=== PATIENT | female | born 1965 | race Caucasian/White ===

== ENCOUNTER 2021-06-22 00:22 | Inpatient (IN) | payer MEDICARE, OTHER ==
[~2021-06-22] VITALS: Ht 167.6 cm; Wt 104.3 kg
[2021-06-22] MEDS ORDERED: HYDR-3972 PO (01:07)
[2021-06-22] MEDS ORDERED: IBUP-1957 PO (01:27)
[2021-06-22] MEDS ORDERED: LEVE1000 PO (01:28)
[2021-06-22] MEDS ORDERED: MAGNESIUM HYDROXIDE 30 ML UDC PO PRN (01:30)
[2021-06-22] MEDS ORDERED: ACETAMINOPHEN 325 MG TABLET PO PRN (01:30)
[2021-06-22] MEDS ORDERED: TEMAZEPAM 15 MG CAPSULE PO PRN (01:30)
[2021-06-22] MEDS ORDERED: BLOOD SUGAR DIAGNOSTIC 1 EACH STRIP IN ONE (01:30)
[2021-06-22] MEDS ORDERED: QUET200T5 PO (01:33)
--- NOTE | 2021-06-22 02:23 | NUR ---
GPS RN NOTE, PATIENT NEEDS A MEDICATION RECONCILIATION. PAGED [facility] AND INFORMED NAEL PEARSON DNP OF MY FINDINGS. NAEL PEARSON DNP SAID SHE WILL DO THE MED RECON WHEN SHE HAS A MOMENT. ALL ORDERS NOTED AND CARRIED OUT. WILL CONTINUE TO MONITOR THIS PATIENT WITH THE HELP OF STAFF.
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
[2021-06-22 03:09] VITALS: BP 150/113
[2021-06-22] MEDS: clonazePAM 0.5 MG TABLET PO PRN ×2 (03:11→22:22)
--- NOTE | 2021-06-22 03:13 | NUR ---
GPS RN NOTES: Patient is restless, anxious, clonazepam 0.5mg given PO at 0311. Will continue to monitor.
[2021-06-22 03:52] VITALS: BP 150/113
[2021-06-22] MEDS ORDERED: IBUPROFEN 800 MG TABLET PO PRN (05:30)
--- NOTE | 2021-06-22 06:48 | NUR ---
GPS RN NOTES: CALLED PATIENT SISTER MIKA MARRERO [phone] AND INFORMED HER OF PATIENT ADMISSION AT 0652. WILL ENDORSE TO AM SHIFT.
[2021-06-22 08:00] VITALS: BP 144/79
--- NOTE | 2021-06-22 10:30 | NUR ---
GIVEN NORCO FOR MIGRAINE HEADACHE.
[2021-06-22] MEDS: LEVETIRACETAM (250 MG) 250 MG TABLET PO SCH ×2 (10:34→21:06)
[2021-06-22] MEDS: HYDROCODONE/APAP 5/325MG TABLET PO PRN ×2 (10:35→17:49)
[2021-06-22 16:00] VITALS: BP 126/97
[2021-06-22] MEDS: QUETIAPINE FUMARATE 25 MG TABLET PO SCH (17:49)
--- NOTE | 2021-06-22 17:50 | NUR ---
GIVEN NORCO FOR HEADACHE.
--- NOTE | 2021-06-22 18:54 | NUR ---
VERY NEEDY,OUT AT DESK [facility], [facility].
[2021-06-22 20:00] VITALS: BP 128/74
--- NOTE | 2021-06-22 22:25 | NUR ---
RN NOTES: ANXIETY PT.C/O VERY ANXIOUS ,NONREDIRECTABLE YELLING SCREAMING PRN KLONOPIN 0.5 MG PO GIVEN WILL CONTINUE TO MONITOR.
[2021-06-23] MEDS: HYDROCODONE/APAP 5/325MG TABLET PO PRN ×3 (02:03→15:03)
--- NOTE | 2021-06-23 02:06 | NUR ---
RN NOTES : PT. C/O BACK PAIN 11/06 , NARCO 1 TAB GIVEN , PER PT. REQUEST WILL CONTINUE TO MONITOR.
[2021-06-23 06:35] LABS: BASOPHILS # (AUTO) 0.1 K/uL (0.0-0.2); BASOPHILS % (AUTO) 0.5 % (0.0-2.0); EOSINOPHILS % (AUTO) 0.1 % (0.0-6.0); HEMATOCRIT 44 % (33-45); HEMOGLOBIN 14.8 g/dL (11.5-14.8); LYMPHOCYTES # (AUTO) 2.9 K/uL (0.8-4.8); MEAN CORPUSCULAR HGB CONC 33 g/dl (31.0-36.0); MEAN CORPUSCULAR VOLUME 85 fL (82-100); MONOCYTES # (AUTO) 0.9 K/uL (0.1-1.30); MONOCYTES % (AUTO) 8.1 % (2.0-12.0); NEUTROPHILS # (AUTO) 6.8 K/uL (1.8-8.9); NEUTROPHILS % (AUTO) 64.3 % (43.0-81.0); PLATELET COUNT (AUTO) 374 K/uL (150-450); RED BLOOD CELL COUNT(AUTO) 5.21 MIL/uL (4.0-5.2); WHITE BLOOD COUNT (AUTO) 10.6 K/uL (4.3-11.0)
[2021-06-23 07:07] LABS: CALCIUM, SERUM 9.1 mg/dL (8.5-10.1); CREATININE 0.6 mg/dL (0.6-1.3); POTASSIUM 3.9 mmol/L (3.5-5.1)
[2021-06-23 08:00] VITALS: BP 140/89
[2021-06-23] MEDS: QUETIAPINE FUMARATE 25 MG TABLET PO SCH ×2 (08:39→16:35)
[2021-06-23] MEDS: LEVETIRACETAM (250 MG) 250 MG TABLET PO SCH ×2 (08:39→20:05)
[2021-06-23 16:00] VITALS: BP 151/80
[2021-06-23] MEDS: clonazePAM 0.5 MG TABLET PO PRN (16:41)
[2021-06-23 19:56] VITALS: BP 140/80
[2021-06-24] MEDS: HYDROCODONE/APAP 5/325MG TABLET PO PRN ×3 (01:31→17:32)
--- NOTE | 2021-06-24 02:00 | NUR ---
GPS RN NOTES PATIENT AWAKE, REQUESTING NORCO, DUE TO GENERALIZED BODY PAINS; 11/06 PAIN, NORCO ADMINISTERED PER MD ORDER; PATIENT ABLE TO MAKE NEEDS KNOWN, ALSO REQUESTING SOME SNACKS; PATIENT IN BED RESTING, WILL CONT TO MONITOR SAFETY
[2021-06-24] MEDS: clonazePAM 0.5 MG TABLET PO PRN ×3 (02:34→20:13)
[2021-06-24 08:00] VITALS: BP 122/60
[2021-06-24] MEDS: LEVETIRACETAM (250 MG) 250 MG TABLET PO SCH ×2 (08:43→21:02)
[2021-06-24] MEDS: QUETIAPINE FUMARATE 25 MG TABLET PO SCH (08:43)
[2021-06-24] MEDS ORDERED: QUETIAPINE FUMARATE 25 MG TABLET PO SCH (09:00)
--- NOTE | 2021-06-24 10:02 | NUR ---
NORCO 5-325 GIVEN FOR GENERALIZED PAIN. WILL REASSESS AND CONTINUE TO MONITOR.
--- NOTE | 2021-06-24 11:42 | NUR ---
KLONOPIN 0.5MG GIVEN FOR ANXIETY. WILL CONTINUE TO MONITOR.
[2021-06-24] MEDS: MAG HYDROX/AL HYDROX/SIMETH 30 ML UDC PO PRN (15:33)
--- NOTE | 2021-06-24 15:33 | NUR ---
MAALOX GIVEN FOR INDIGESTION. WILL CONTINUE TO MONITOR
--- NOTE | 2021-06-24 15:36 | NUR ---
Initial Discharge Plan: The pt. was admitted to [facility] from [facility] [[address] [facility] [address]The pt. is currently experiencing homelessness. Pt. states she would like to be discharged to [facility] in [facility] [[address] [place] [address] . Pt. is not able to make a safe discharge plan at this time. The pt.'s sister, Meg Tinoco [phone] stated she would prefer that the pt. be discharged to a SNF. SS will continue to collaborate with psychiatrists to plan a safe & proper discharge plan.
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
[2021-06-24 16:00] VITALS: BP 148/79
--- NOTE | 2021-06-24 17:33 | NUR ---
NORCO 5-325 GIVEN FOR GENERALIZED PAIN. WILL REASSESS AND CONTINUE TO MONITOR.
--- NOTE | 2021-06-24 20:16 | NUR ---
RN NOTES: ANXIETY PT.C/O VERY ANXIOUS ,NONREDIRECTABLE,NEEDY,RESTLESS,PACING IN HALLWAY PRN KLONOPIN 0.5 MG PO GIVEN WILL CONTINUE TO MONITOR.
[2021-06-24 20:43] VITALS: BP 146/65
[2021-06-24 21:00] VITALS: BP 130/82
[2021-06-24] MEDS: QUETIAPINE FUMARATE 100 MG TABLET PO SCH (21:36)
[2021-06-25] MEDS: HYDROCODONE/APAP 5/325MG TABLET PO PRN ×3 (03:26→17:05)
[2021-06-25 08:00] VITALS: BP 109/63
[2021-06-25] MEDS: LEVETIRACETAM (250 MG) 250 MG TABLET PO SCH ×2 (09:06→21:35)
[2021-06-25] MEDS: QUETIAPINE FUMARATE 25 MG TABLET PO SCH (09:06)
--- NOTE | 2021-06-25 09:44 | NUR ---
NORCO 5-325 GIVEN FOR GENERALIZED PAIN. WILL REASSESS AND CONTINUE TO MONITOR.
--- NOTE | 2021-06-25 12:10 | NUR ---
SANTOS Family Contact: SANTOS received a call from patient's mother Debby ([phone]) to give information to this story writer. Debby reported that she would want pt to go to a SNF. SANTOS stated that this story writer will give pt options.
--- NOTE | 2021-06-25 12:58 | NUR ---
SNF Referral: SW spoke with Pamela diaz from [facility] ([phone]) who stated they cannot accept pt due to pt not having skill need.
--- NOTE | 2021-06-25 12:58 | NUR ---
SNF Referral: SANTOS sent clinicals to Pamela diaz from [facility] ([phone]) for placement option. SW sent H & P, progress notes, and medication list.
--- NOTE | 2021-06-25 13:00 | NUR ---
SNF Referral: SANTOS sent clinicals to Margaret diaz from [facility] ([phone]) for placement option. SW sent H & P, progress notes, and medication list.
[2021-06-25] MEDS: clonazePAM 0.5 MG TABLET PO PRN ×2 (14:26→21:37)
--- NOTE | 2021-06-25 14:26 | NUR ---
KLONOPIN 0.5MG GIVEN FOR ANXIETY. WILL CONTINUE TO MONITOR.
--- NOTE | 2021-06-25 14:40 | NUR ---
SW Note: Patient has been verbally abusive and has been yelling at this radio news writer and stating that she has issues with her family.
--- NOTE | 2021-06-25 14:47 | NUR ---
SW Note: Patient is labile and hyperverbal. Patient yelling "god is here".
--- NOTE | 2021-06-25 15:55 | NUR ---
SW Note: SW had received a call from patient's mother Debby ([phone]) who shared information with this news writer in regards to patients discharge and information about pt. Pt spoke with mother later on today around 2PM and became agitated about it and yelled at this news writer to not speak to pt's mother. Pt wishes for staff not to speak to family.
[2021-06-25 16:00] VITALS: BP 141/62
--- NOTE | 2021-06-25 16:15 | NUR ---
DNP WESLEY WAS CONTACTED PT BECAME EXTREMELY IRRITATED AND AGITATED AFTER A PHONE CALL. UNABLE TO REDIRECT PATIENT. YELLING AND INTRUSIVE. PER DNP WESLEY IF PT CONTINUED WITH BEHAVIOR, ATIVAN 2MG IM TO BE GIVEN. WILL MONITOR BEHAVIOR.
--- NOTE | 2021-06-25 16:45 | NUR ---
PT IS MORE CALM AND COOPERATIVE. PT REDIRECTABLE. PT IN ROOM. NO NEED FOR ATIVAN 2MG IM NEEDED AT THIS TIME.
--- NOTE | 2021-06-25 17:06 | NUR ---
NORCO 5-325 GIVEN FOR GENERALIZED PAIN. WILL REASSESS AND CONTINUE TO MONITOR.
[2021-06-25] MEDS: QUETIAPINE FUMARATE 100 MG TABLET PO SCH (21:35)
--- NOTE | 2021-06-25 21:41 | NUR ---
GPS RN NOTES: PATIENT IS RESTLESS, PACING, AGITATED. KLONOPIN 0.5MG GIVEN PO ORDERED. WILL CONTINUE TO MONITOR.
[2021-06-26] MEDS: HYDROCODONE/APAP 5/325MG TABLET PO PRN ×4 (01:06→21:38)
--- NOTE | 2021-06-26 01:09 | NUR ---
GPS RN NOTES: Patient c/o generalized body pain. patient is restless, irritable and rates pain level 8/10. [place] 5/325mg/1tab given PO at 0106. Will continue to monitor.
[2021-06-26 08:00] VITALS: BP 146/88
[2021-06-26] MEDS: LEVETIRACETAM (250 MG) 250 MG TABLET PO SCH ×2 (08:19→21:39)
[2021-06-26] MEDS: QUETIAPINE FUMARATE 25 MG TABLET PO SCH (08:19)
[2021-06-26] MEDS: clonazePAM 0.5 MG TABLET PO PRN ×3 (08:31→21:39)
--- NOTE | 2021-06-26 08:32 | NUR ---
RN-CO: KLONOPIN 0.5 MG PO GIVEN FOR RESTLESSNESS AND ANXIETY.
--- NOTE | 2021-06-26 08:32 | NUR ---
RN-CO: PEYTON 1 TAB GIVEN FOR C/O GEN PAIN 11/06.
--- NOTE | 2021-06-26 08:44 | NUR ---
Court Hearing Notification: Pt's court hearing for 5250 is today, however, pt does not want the staff to notify family.
--- NOTE | 2021-06-26 10:58 | NUR ---
Court Hearing: Patient's court hearing for 7620 was today and it was upheld for GD.
--- NOTE | 2021-06-26 11:21 | NUR ---
SNF Contact: SW spoke with Margaret diaz from [facility] ([phone]) who stated that pt is accepted.
--- NOTE | 2021-06-26 14:07 | NUR ---
RN-CO: KLONOPIN 0.5 MG PO GIVEN FOR C/O RESTLESSNESS.
--- NOTE | 2021-06-26 15:04 | NUR ---
rn-co: norco given for c/o gen body pain 11/06.
[2021-06-26 16:00] VITALS: BP 144/82
[2021-06-26 20:19] VITALS: BP 136/59
[2021-06-26] MEDS: QUETIAPINE FUMARATE 100 MG TABLET PO SCH (21:38)
--- NOTE | 2021-06-26 21:38 | NUR ---
RN NOTES norco as ordered by hospitalist given for c/o gen body pain 11/06.
--- NOTE | 2021-06-26 21:40 | NUR ---
RN NOTES KLONOPIN 0.5 MG PO ORDERED BY HOSPITALIST GIVEN FOR C/O RESTLESSNESS.
[2021-06-27] MEDS: clonazePAM 0.5 MG TABLET PO PRN ×2 (05:20→19:36)
[2021-06-27] MEDS: HYDROCODONE/APAP 5/325MG TABLET PO PRN ×3 (05:21→21:07)
--- NOTE | 2021-06-27 05:21 | NUR ---
RN NOTES KLONOPIN 0.5 MG PO ORDERED BY HOSPITALIST GIVEN FOR C/O RESTLESSNESS.
--- NOTE | 2021-06-27 05:22 | NUR ---
RN NOTES norco as ordered by hospitalist given for c/o gen body pain 11/06.
[2021-06-27] MEDS: LEVETIRACETAM (250 MG) 250 MG TABLET PO SCH ×2 (08:33→21:09)
[2021-06-27] MEDS: QUETIAPINE FUMARATE 25 MG TABLET PO SCH (08:33)
[2021-06-27 16:00] VITALS: BP 143/89
--- NOTE | 2021-06-27 16:16 | NUR ---
SANTOS Note: SANTOS notified pt that her mother SANTOS Guardado ([phone]) contacted this account underwriter and wanted to speak about her treatment/discharge plan. Patient did not allow this account underwriter to contact her mother Debby.
--- NOTE | 2021-06-27 16:16 | NUR ---
SANTOS Family Contact: SW received a call from patient's mother Debby ([phone]) and left a voicemail to discuss pt's discharge and treatment plan.
[2021-06-27 20:00] VITALS: BP 161/95
[2021-06-27] MEDS: QUETIAPINE FUMARATE 100 MG TABLET PO SCH (21:08)
--- NOTE | 2021-06-28 03:33 | NUR ---
RN Notes: Medicine compliant. Many small demands, "Get me a Blianket", Get me Fresh water . "Get me Avant". She stated that [employer]or[employer] makes her have seizuers. Medicated at 2129 with NORCO for generalized pAIN and effective. She is demanding and verbally loud. She ambulates with a walker
[2021-06-28] MEDS: HYDROCODONE/APAP 5/325MG TABLET PO PRN ×3 (05:26→19:39)
--- NOTE | 2021-06-28 06:00 | NUR ---
RN NOTES: medicated this AM with 1 tablet of NORCO she has requested to take a shower. Shown to the shower room bed linen changed
[2021-06-28] MEDS: clonazePAM 0.5 MG TABLET PO PRN ×3 (08:36→21:05)
[2021-06-28] MEDS: QUETIAPINE FUMARATE 25 MG TABLET PO SCH ×2 (08:36→16:23)
[2021-06-28] MEDS: LEVETIRACETAM (250 MG) 250 MG TABLET PO SCH ×2 (08:36→21:05)
--- NOTE | 2021-06-28 13:21 | NUR ---
SW Family Contact: SW received a call from patient's mother Debby ([phone]) and this SW expressed that pt does not want this show card writer to contact or share any information regarding her treatment. Mother was understanding of this.
--- NOTE | 2021-06-28 15:15 | NUR ---
RN NOTE- ANXIETY/ RESTLESSNESS. KLONOPIN 0.5 MG ADMINISTERED
[2021-06-28 16:00] VITALS: BP 140/67
[2021-06-28] MEDS: FUROSEMIDE 20 MG TABLET PO SCH (16:23)
--- NOTE | 2021-06-28 19:30 | NUR ---
GPS RN OPENING NOTE RECEIVED PATIENT AWAKE IN BED. A/OX3. PT STABLE ON ROOM AIR. NO SOB OR S/S OF RESPRITATORY DISTRESS. PT IS MED COMPLIANT, ATTENTION SEEKING, NOT REDIRECTABLE, DELUSIONAL, AND POOR INSIGHT. PATIENT DENIES SI/HI AT THIS TIME. SAFETY PRECAUTIONS IN PLACE. BED IN LOWEST LOCKED POSITION, SIDE RAILS UP X2, AND CALL LIGHT IN REACH. WILL CONTINUE WITH PLAN OF CARE.
--- NOTE | 2021-06-28 19:39 | NUR ---
RN NOTE PT COMPLAINING OF BLE PAIN 11/06. ADMINISTERED NORCO 5-325 MG ORDERED FOR MODERATE TO SEVERE PAIN. WILL CONTINUE WITH PLAN OF CARE.
[2021-06-28 20:00] VITALS: BP 107/67
[2021-06-28] MEDS: QUETIAPINE FUMARATE 100 MG TABLET PO SCH (21:05)
--- NOTE | 2021-06-28 21:05 | NUR ---
RN NOTE PT ANXIOUS, YELLING, AND PACING THE HALLWAY. ADMINISTERED KLONOPIN 0.5 MG ORDERED FOR ANXIETY. WILL CONTINUE WITH PLAN OF CARE.
[2021-06-29] MEDS: MAG HYDROX/AL HYDROX/SIMETH 30 ML UDC PO PRN ×3 (01:06→18:38)
--- NOTE | 2021-06-29 01:07 | NUR ---
RN NOTE PT COMPLAINED OF INDIGESTION. ADMINISTERED MAALOX ORDERED. WILL CONTINUE WITH PLAN OF CARE.
[2021-06-29] MEDS: HYDROCODONE/APAP 5/325MG TABLET PO PRN ×4 (02:12→22:19)
--- NOTE | 2021-06-29 02:12 | NUR ---
RN NOTE PT COMPLAINING OF BLE PAIN 10/06. ADMINISTERED NORCO 5-325 MG ORDERED FOR MODERATE TO SEVERE PAIN. WILL CONTINUE WITH PLAN OF CARE.
[2021-06-29] MEDS: clonazePAM 0.5 MG TABLET PO PRN ×2 (06:38→16:35)
--- NOTE | 2021-06-29 06:38 | NUR ---
RN NOTE PT ANXIOUS, YELLING, AND PACING THE HALLWAY. ADMINISTERED KLONOPIN 0.5 MG ORDERED FOR ANXIETY. WILL CONTINUE WITH PLAN OF CARE.
[2021-06-29 08:00] VITALS: BP 133/69
[2021-06-29] MEDS: LEVETIRACETAM (250 MG) 250 MG TABLET PO SCH ×2 (09:19→22:19)
[2021-06-29] MEDS: QUETIAPINE FUMARATE 25 MG TABLET PO SCH ×2 (09:20→17:27)
--- NOTE | 2021-06-29 09:20 | NUR ---
GIVEN NORCO 5-325 FOR GENERALIZED PAIN,PACING IN HALLWAY.
--- NOTE | 2021-06-29 15:10 | NUR ---
given fiorella at this time,very needy and continually asking for things. Addendum: 06/29/[address]AIDI RN after bringing in antacid,pt refused,said she would rather eat.
--- NOTE | 2021-06-29 15:37 | NUR ---
given norco for generalized pain.
[2021-06-29 16:00] VITALS: BP 154/84
--- NOTE | 2021-06-29 16:36 | NUR ---
GIVEN KLONOPIN FOR NERVES.
--- NOTE | 2021-06-29 18:42 | NUR ---
GIVEN MYLANTA FOR INDIGESTION.
--- NOTE | 2021-06-29 19:30 | NUR ---
RN OPENING NOTE PATIENT AWAKE AND WALKING THE RINCON NEAREST HER ROOM. A/OX3. NO S/S OF DISTRESS; BREATHING UNLABORED ON RM AIR. PATIENT'S MOOD APPEARS ANXIOUS. SAFETY MEASURES IN PLACE: HER BED IS AT LOWEST POSITION & LOCKED, CALL LIGHT ACCESSIBLE IF NEEDED. WILL CONTINUE TO MONITOR PATIENT.
[2021-06-29 20:00] VITALS: BP 154/86
[2021-06-29] MEDS: QUETIAPINE FUMARATE 100 MG TABLET PO SCH (22:19)
[2021-06-30] MEDS: MAG HYDROX/AL HYDROX/SIMETH 30 ML UDC PO PRN ×2 (04:27→12:45)
[2021-06-30] MEDS: FUROSEMIDE 20 MG TABLET PO SCH (05:09)
[2021-06-30] MEDS: HYDROCODONE/APAP 5/325MG TABLET PO PRN ×3 (05:09→19:44)
[2021-06-30 08:00] VITALS: BP 133/64
[2021-06-30] MEDS: LEVETIRACETAM (250 MG) 250 MG TABLET PO SCH ×2 (08:11→20:58)
[2021-06-30] MEDS: QUETIAPINE FUMARATE 25 MG TABLET PO SCH ×2 (08:11→17:05)
[2021-06-30] MEDS: clonazePAM 0.5 MG TABLET PO PRN ×3 (08:28→21:48)
[2021-06-30] MEDS ORDERED: OLANZAPINE 10 MG VIAL IM ONE (13:30)
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
--- NOTE | 2021-06-30 13:55 | NUR ---
RN-CO: PATIENT CONTINUE TO YELL AND SCREAMED IN THE HALLWAY WITH PROFANITIES. VERY LOUD AND DISRUPTIVE IN THE UNIT. REMAINS NON REDIRECTABLE. WE WILL CONTINUE TO MONITOR.
--- NOTE | 2021-06-30 20:06 | NUR ---
GPS RN NOTES PATIENT COMPLIANT WITH MEDICATION REGIME BUT CONSTANTLY REFUSING SKIN ASSESSMENTS, PATIENT REFUSED SKIN ASSESSMENT UPON ADMISSION; PATIENT WAS RE-EDUCATED ON IMPORTANCE OF COMPLIANCE THROUGHOUT HOSPITALIZATION, PATIENT VERBALIZED, "I JUST WANT MY PAIN MEDICATIONS AND TO REST, PLEASE CLOSE THE DOOR ON YOUR WAY OUT." UNFORTUNATELY PATIENT REFUSED SKIN ASSESSMENT AGAIN, CHARGE NURSE MADE AWARE;
[2021-06-30] MEDS: QUETIAPINE FUMARATE 100 MG TABLET PO SCH (21:02)
[2021-06-30 21:11] VITALS: BP 124/64
[2021-07-01] MEDS: HYDROCODONE/APAP 5/325MG TABLET PO PRN ×4 (02:56→21:08)
--- NOTE | 2021-07-01 07:30 | NUR ---
PT RECEIVED RESTING COMFORTABLY IN BED. NO S/S OR C/O PAIN OR DISTRESS NOTED. SIDE RAILS UP X2. WILL CONTINUE PLAN OF CARE
[2021-07-01 08:00] VITALS: BP 153/82
[2021-07-01] MEDS: LEVETIRACETAM (250 MG) 250 MG TABLET PO SCH ×2 (08:39→21:06)
[2021-07-01] MEDS: QUETIAPINE FUMARATE 25 MG TABLET PO SCH ×2 (08:42→18:10)
[2021-07-01] MEDS: clonazePAM 0.5 MG TABLET PO PRN ×4 (10:14→22:16)
[2021-07-01] MEDS: MAG HYDROX/AL HYDROX/SIMETH 30 ML UDC PO PRN (14:14)
[2021-07-01 16:00] VITALS: BP 147/88
[2021-07-01 19:55] VITALS: BP 155/68
[2021-07-01] MEDS: QUETIAPINE FUMARATE 100 MG TABLET PO SCH (21:05)
[2021-07-02] MEDS: clonazePAM 0.5 MG TABLET PO PRN ×4 (02:04→19:50)
[2021-07-02] MEDS: HYDROCODONE/APAP 5/325MG TABLET PO PRN ×4 (03:34→22:55)
[2021-07-02] MEDS: FUROSEMIDE 20 MG TABLET PO SCH (06:26)
[2021-07-02 08:00] VITALS: BP 137/73
[2021-07-02] MEDS: QUETIAPINE FUMARATE 25 MG TABLET PO SCH ×2 (10:20→16:47)
[2021-07-02] MEDS: LEVETIRACETAM (250 MG) 250 MG TABLET PO SCH ×2 (10:20→21:08)
--- NOTE | 2021-07-02 10:27 | NUR ---
given norco for generalized pain.
--- NOTE | 2021-07-02 11:46 | NUR ---
in tv rm. yelling,ready to eat and wants to be alone.given klonoagustin.
--- NOTE | 2021-07-02 13:05 | NUR ---
YELLING IN DINING RM. AT THIS TIME,REFUSING TO EAT IN HER RM.WANTS LUNCH TABLE BY HERSELFCRITICIZING CHOICE OF TV SHOW.
--- NOTE | 2021-07-02 15:43 | NUR ---
GIVEN KLONOPIN FOR AGITATION.
[2021-07-02 16:00] VITALS: BP 141/87
--- NOTE | 2021-07-02 16:52 | NUR ---
MEDICATED ADDITIONALLY FOR GENERALIZED PAIN WITH NORCO.
--- NOTE | 2021-07-02 19:41 | NUR ---
RN OPENING NOTE PATIENT WALKING AROUND THE HALLWAY AND BACK TO HER ROOM, YELLING AND SCREAMING REGARDING GETTING AN ICE PACK. PATIENT IS HOSTILE, AGITATED, AND DELUSIONAL. PATIENT IS A/O X 3 AT THIS TIME. WILL PROVIDE ANTI ANXIETY MEDS ACCORDINGLY. PATIENT NOT IN ANY RESPIRATORY DISTRESS. SAFETY MEASURES IMPLEMENTED. BED LOCKED AND IN LOWEST POSITION, SIDE RAILS UP, BED ALARM ON. WILL MONITOR PATIENT CLOSELY.
[2021-07-02 19:48] VITALS: BP 136/82
--- NOTE | 2021-07-02 19:54 | NUR ---
PATIENT AGITATED, ARGUMENTATIVE, AND DELUSIONAL. KLONOPIN GIVEN.
[2021-07-02] MEDS: QUETIAPINE FUMARATE 100 MG TABLET PO SCH (21:08)
--- NOTE | 2021-07-02 22:55 | NUR ---
NORCO 5-325 GIVEN FOR LEG PAIN. WILL REASSESS AT A LATER TIME.
[2021-07-03] MEDS: HYDROCODONE/APAP 5/325MG TABLET PO PRN ×3 (04:55→19:49)
--- NOTE | 2021-07-03 05:03 | NUR ---
NORCO 5-325 GIVEN FOR LEG PAIN. WILL REASSESS AT A LATER TIME. ICE PACK GIVEN.
[2021-07-03] MEDS: clonazePAM 0.5 MG TABLET PO PRN ×3 (05:56→18:08)
--- NOTE | 2021-07-03 06:00 | NUR ---
KLONOPIN GIVEN D/T INCREASED ANXIETY AND AGITATION
[2021-07-03 08:00] VITALS: BP 151/77
[2021-07-03] MEDS: QUETIAPINE FUMARATE 25 MG TABLET PO SCH ×2 (08:46→17:00)
[2021-07-03] MEDS: LEVETIRACETAM (250 MG) 250 MG TABLET PO SCH ×2 (08:46→21:39)
--- NOTE | 2021-07-03 14:57 | NUR ---
Individual Counseling: SANTOS met with pt. bedside and completed individual group regarding positive coping mechanisms. The p. is alert & oriented, piercing eye contact, irritable, loud speech with tangential thought process. SW educated pt. on positive coping mechanisms and pt. was receptive. pt. stated, she has learned in the past that doing breathing exercises help her relax as will as writing letters to loved ones as a ways of communicating positively. SANTOS validated what she has used in the past.
[2021-07-03 16:00] VITALS: BP 150/75
--- NOTE | 2021-07-03 19:35 | NUR ---
GPS RN NOTES RECEIVED WALKING BY THE HALLWAYS,PUSHING HER BEDSIDE TABLE WITH HER DINNER FOOD TRAY ON IT,ATE FOOD BY THE HALLWAY,NO CHOKING NOTED.A/O X3,ABLE TO VERBALIZED NEEDS,REDIREACTABLE.AMBULATE WITH STEADY GAIT.TALKATIVE AT TIMES.WILL CONTINUE TO MONITOR BEHAVIOR.
--- NOTE | 2021-07-03 19:49 | NUR ---
GPS RN NOTES C/O CHRONIC GENERALIZED PAIN, NORCO 5/325MG,1TAB PO GIVEN ORDERED FOR MODERATE PAIN AND PER PATIENT REQUEST.
[2021-07-03] MEDS: QUETIAPINE FUMARATE 100 MG TABLET PO SCH (21:40)
[2021-07-04] MEDS: clonazePAM 0.5 MG TABLET PO PRN ×6 (01:22→20:33)
--- NOTE | 2021-07-04 01:22 | NUR ---
GPS RN NOTES AWAKE THIS TIME,FEELING ANXIOUS,KLONOPIN 0.5MG PO GIVEN ORDERED.
[2021-07-04] MEDS: HYDROCODONE/APAP 5/325MG TABLET PO PRN ×3 (01:54→19:46)
--- NOTE | 2021-07-04 01:54 | NUR ---
GPS RN NOTES HAVING GENERALIZED PAIN 6/10 ON PAIN SCALE,NORCO 5/325MG, 1 TAB PO GIVEN ORDERED FOR MODERATE PAIN
--- NOTE | 2021-07-04 06:00 | NUR ---
GPS RN NOTES BP 159/77,PULSE-93,DUE LASIX 20MG PO GIVEN SCHEDULED.
[2021-07-04] MEDS: FUROSEMIDE 20 MG TABLET PO SCH (06:07)
--- NOTE | 2021-07-04 06:29 | NUR ---
GPS RN NOTES SLEEP WELL AT NIGHT,VERY MANIPULATIVE,WHAT SHE ASK,WANTS TO GET IT RIGHT AWAY.WILL CONTINU TO MONITOR BEHAVIOR.
--- NOTE | 2021-07-04 06:30 | NUR ---
GPS RN NOTES FEELING ANXIOUS,KLONOPIN 0.5MG PO SUPPOSED TO BE GIVEN BUT IT FELL ON THE FLOOR,WASTED WITNESSED BY CHARGE NURSE KATT
--- NOTE | 2021-07-04 06:49 | NUR ---
GPS RN NOTES KLONOPIN 0.5MG PO GIVEN FOR ANXIETY WITH ORDER.
--- NOTE | 2021-07-04 06:54 | NUR ---
GPS RN NOTES CALM,WALK AROUND IN THE HALLWAY WITH WALKER,NO DISTRESS.
[2021-07-04 08:00] VITALS: BP_SYST 137; BP_SYST 146; BP_DIAS 83; BP_DIAS 84
[2021-07-04] MEDS: QUETIAPINE FUMARATE 25 MG TABLET PO SCH ×2 (08:19→16:56)
[2021-07-04] MEDS: LEVETIRACETAM (250 MG) 250 MG TABLET PO SCH ×2 (08:19→21:09)
--- NOTE | 2021-07-04 11:26 | NUR ---
Pt. is agitated, anxious, screaming and yelling in the hallway and verbally abusive. PRN of Klonopin given and will continue to monitor.
--- NOTE | 2021-07-04 12:20 | NUR ---
SW Note: Patient yelling in the unit making inappropriate comments. Demanding towards the staff and being verbally abusive.
[2021-07-04 16:00] VITALS: BP_SYST 117; BP_SYST 150; BP_DIAS 63; BP_DIAS 70
[2021-07-04 20:00] VITALS: BP 148/75
[2021-07-04] MEDS: MAG HYDROX/AL HYDROX/SIMETH 30 ML UDC PO PRN (20:33)
[2021-07-04] MEDS: QUETIAPINE FUMARATE 100 MG TABLET PO SCH (21:09)
[2021-07-05] MEDS: HYDROCODONE/APAP 5/325MG TABLET PO PRN ×2 (04:12→10:22)
[2021-07-05] MEDS: clonazePAM 0.5 MG TABLET PO PRN ×2 (05:48→10:04)
--- NOTE | 2021-07-05 05:48 | NUR ---
GPS RN NOTE, PATIENT HAS A COMPLAINT OF FEELING ANXIOUS AND IS REQUESTING KLONOPIN AT THIS TIME. PATIENT VITAL SIGNS ARE STABLE. GAVE KLONOPIN 0.5MG PO Q4HR PRN ORDERED. WILL REASSESS FOR ANXIETY AND I WILL CONTINUE TO MONITOR THIS PATIENT WITH THE HELP OF STAFF.
--- NOTE | 2021-07-05 07:51 | NUR ---
Dilshad Infante EMBEDDED SOFTWARE DEVELOPER of Dr. Stevens gave an order to D/C hold and D/C to [facility] and to follow up with psych and medical doctors. Dilshad Infante reconciled the meds to continue in the facility.
--- NOTE | 2021-07-05 08:05 | NUR ---
SW Discharge Note: Patient will be discharged to correction facility [facility] [address] [address], [place] [address]; ). Please arrange ambulance at 1PM. Logging Tractor Operator spoke with Margaret Fitness Technician at [facility]; ([phone]), who stated patient will be accepted today. Patient does not want staff to contact any family members. Patient is alert and oriented x3. Patient denies any suicidal or homicidal ideations. Patient will continue to follow-up with her Psychiatrist Dr. [place] [address] [place] [address]; ([phone]) and (Splunk Consultant) Dr. Justin [address], [place] [address]; ([phone]). Patient refused to sign the homeless waiver upon discharge and a copy was placed in the chart. Homeless resources were provided and include [address] information line for shelters and homeless resources. A copy of all resources given to patient was also placed in the chart. Patient presents with euthymic mood and congruent affect.
[2021-07-05] MEDS: LEVETIRACETAM (250 MG) 250 MG TABLET PO SCH (09:01)
[2021-07-05] MEDS: QUETIAPINE FUMARATE 25 MG TABLET PO SCH (09:01)
--- NOTE | 2021-07-05 10:04 | NUR ---
GPS RN NOTE PATIENT HAS A COMPLAINT OF FEELING ANXIOUS AND IS REQUESTING KLONOPIN AT THIS TIME. PATIENT VITAL SIGNS ARE STABLE. GAVE KLONOPIN 0.5MG PO Q4HR PRN ORDERED. WILL REASSESS FOR ANXIETY AND WILL CONTINUE TO MONITOR THE PATIENT WITH THE HELP OF STAFF.
--- NOTE | 2021-07-05 10:22 | NUR ---
RN NOTE PATIENT IS COMPLAINING OF PAIN ON BOTH LEGS AT THE SCALE OF 6/10 AND IS REQUESTING FOR NORCO. GIVEN NORCO 5-325 HER PAIN MEDICATION. WILL CONTINUE TO MONITOR PATIENT.
--- NOTE | 2021-07-05 12:48 | NUR ---
RN NOTE PATIENT HAS BEEN UPSET FOR KLONOPIN BEING DISCONTINUED PART OF HER DISCHARGE MEDS AND ASKED FOR KLONOPIN TO BE CONTINUED. CALLED DR. OLSON FOR PATIENT'S CONCERN AND ORDERED KLONOPIN 0.5MG PO Q4HR PRN FOR ANXIETY AND AGITATION FOR 5DAYS.
--- NOTE | 2021-07-05 13:32 | NUR ---
GPS ULTRASOUND TECHNOL NOTES PT WAS SEEN BY DR. OLSON AND ORDERED PATIENT FOR DISCHARGE TO SNF. CALLED THE FACILITY AND GIVEN REPORT TO ERIBERTO DE ANDA. PATIENT DENIES ANY SUICIDAL AND HOMICIDAL IDEATION AT THIS TIME. DR. MURDOCK MADE AWARE OF THE DISCHARGE AND RECONCILED MEDS TO CONTINUE AT THE FACILITY. NAME WRIST BAND REMOVED. PATIENT SIGNED DISCHARGE FORM AND BELONGINGS LIST ACCOUNTED FOR. PICKED-UP BY AMBULANCE PERSONNEL VIA GURNEY AND LEFT IN STABLE CONDITION. MD AND CHARGE NURSE ARE AWARE OF THE DISCHARGE.
== END 2021-07-05 13:32 | DRG 885 ==
LOC: GPS 00:22
PROVIDERS: ADMIT Psychiatry & Neurology Psychiatry; ATTEND Nurse Practitioner Acute Care
DX: F29 Unspecified psychosis not due to a substance or known physiological condition (principal); F41.9 Anxiety disorder, unspecified; E66.9 Obesity, unspecified; G40.909 Epilepsy, unspecified, not intractable, without status epilepticus; Z73.6 Limitation of activities due to disability; E78.5 Hyperlipidemia, unspecified; Z91.19 Patient's noncompliance with other medical treatment and regimen; Z59.00 Homelessness unspecified; Z68.37 Body mass index [BMI] 37.0-37.9, adult; F15.10 Other stimulant abuse, uncomplicated
CPT/HCPCS: 36415; 80048-TC; 80061-TC; 85025-TC; 87081-TC; 97116-TC; 97530-TC; J3490